=== PATIENT | male | born 1980 | race Caucasian/White ===

== ENCOUNTER 2023-12-14 | Emergency (ER) | payer SELFPAY ==
[~2023-12-14] VITALS: Ht 175.3 cm; Wt 120.0 kg
[2023-12-14 00:07] VITALS: O2SAT 98
[2023-12-14] MEDS ORDERED: AMOX1TAB16 MT (08:31)
[2023-12-14] MEDS ORDERED: IBUP-2029 MT (08:31)
[2023-12-14 08:38] VITALS: BP 156/93; PULSE 94; RESP 16; TEMP 36.89184; O2SAT 98
== END 2023-12-14 08:51 | disposition home or self-care (01) ==
LOC: ER
DX: S70.312A Abrasion, left thigh, initial encounter (principal); W64.XXXA Exposure to other animate mechanical forces, initial encounter; Y93.89 Activity, other specified; Y92.89 Other specified places as the place of occurrence of the external cause; Y99.8 Other external cause status
CPT/HCPCS: 99283